=== PATIENT | male | born 1985 | race African-American/Black ===

== ENCOUNTER 2016-10-13 02:13 | Emergency (ER) | payer BC ==
[2016-10-13 02:27] VITALS: BP 138/85; PULSE 66; TEMP 98.4; BMI 25.2
[2016-10-13] MEDS ORDERED: OXCARBAZEPINE 150 MG TAB PO ONE (02:32)
--- NOTE | 2016-10-13 02:35 | EDPRACDOC ---
- General Information Chief Complaint: Earache Stated Complaint: LT EAR ACHE Time Seen by Provider: 10/13/16 02:29 Information Source: Patient Mode of Arrival: Car Home Medications: Home Medications Ciprofloxacin HCl 500 mg PO .BID X 7D 08/05/16 Diazepam [Valium] 2 mg PO TID #15 tablet 08/05/16 Oxycodone Immediate Release [Oxycodone Immediate Release (OxyIR)] 5 mg PO Q6H PRN #15 tab 08/05/16 Prednisone [Deltasone] 20 mg PO BID #12 tablet 08/05/16 Oxcarbazepine [Trileptal] 300 mg PO BID #60 tablet 10/13/16 Allergies/Adverse Reactions: Allergies Allergy/AdvReac Type Severity Reaction Status Date / Time No Known Allergies Allergy Verified 10/13/16 02:26 - History of Present Illness Onset: 2100 HPI: PT PRESENTS WITH PAIN IN THE LEFT SIDE OF HIS FACE. STATES HE HAS KNOWN TRIGEMINAL NEURALGIA AND HAS BEEN OUT OF HIS MEDICATION FOR ABOUT 3 WEEKS. STATES HE HAS AN APPOINTMENT WITH HIS DOCTOR ON SATURDAY. DENIES FEVER, CHILLS, NAUSEA OR VOMITING. Location: left ear Context: Reports: Spontaneous Onset Recently Treated Ear Infection: Reports: No Pain Severity: Reports: Moderate Associated Signs & Symptoms: Reports: None ED Past Medical History - History Reviewed Yes Nurses notes reviewed and agree except as marked - Patient Medical History Psychological History: Denies: Depression - Social Medical History Smoking Status: Light tobacco smoker (less than 5/day) EDM Review of Systems - Review of Systems ROS Negative Except as Marked: Yes All systems reviewed and were negative except as marked - Physical Exam Constitutional: Alert Oriented to: Time, Person, Place Last recorded Vital Signs: Last Vital Signs Temp 98.4 F 10/13/16 02:22 Pulse 66 10/13/16 02:22 Resp 20 10/13/16 02:22 BP 138/85 10/13/16 02:22 Pulse Ox 98 10/13/16 02:22 Oxygen Pulse Oxygen Saturation 98 O2 Device Room Air Oxygen Flow Rate Fraction of Inspired Oxygen ( FIO2) - HEENT Head: Normal ( normocephalic) Eye Exam: Normal (PERRL, EOMI, Sclera white) Oropharynx: Normal (Pharynx:Moist without exudate,Gums-no swelling) Tympanic Membrane: Normal Nose: No Symptoms Reported (septum midline) Neck: Normal (FROM, trachea at midline) - Respiratory/Cardiovascular Respiratory: Normal - CTA (BBS clear to auscultation without adventitious sounds ) Cardiovascular: Normal (RRR without murmur, gallop or rub) - GI Auscultation: Normal (NABS) Palpation: Normal (Soft,No rebound or guarding, non distended) Tenderness: Non tender Cid's Sign: Negative Rectal Exam: Deferred - Musculoskeletal Back: Normal (Non-Tender) Extremities: Normal (Normal tone, Pulses 2+ No cyanosis or edema, FROM) - Integumentary Skin: Normal, Warm, Dry Lymphatics: Normal (no adenopathy) - Neurologic Memory Impaired: Normal Motor Function: Normal (Normal tone, Pulses 2+ No cyanosis or edema, FROM) Cranial Nerve: Normal (CN II-X11 intact sensation, strength 5/5) Cerebellar: Normal Mood Description: Normal Perception: Normal - Differential Diagnosis Other Decision Time to Discharge: 02:35 - Departure Disposition: Home Condition: Stable Final Diagnosis: Trigeminal neuralgia of left side of face Instructions: Trigeminal Neuralgia (ED) Education/Counseling Given To: Patient Education/Counseling Given Regarding: Diagnosis, Treatment, Prognosis, Follow Up Referrals: Kashmir Hogan MD [Staff Physician] - One Week Prescriptions: Oxcarbazepine [Trileptal] 300 mg PO BID #60 tablet Additional Instructions: KEEP YOUR APPOINTMENT WITH YOUR DOCTOR ON SATURDAY. TAKE MEDICATION PRESCRIBED. RETURN TO THE ED FOR WORSENING SYMPTOMS OR CONCERNS.
== END 2016-10-13 02:45 | disposition home or self-care (01) ==
LOC: ED 02:13
DX: G50.0 Trigeminal neuralgia (principal)
CPT/HCPCS: 99282; J3490